=== PATIENT | male | born 1965 | race Caucasian/White ===

== ENCOUNTER 2022-03-26 11:55 | Observation (INO) ==
[2022-03-26] MEDS ORDERED: SODIUM CHLORIDE 0.9% 500 ML IV STA (12:26)
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
[2022-03-26 12:37] LABS: Basophils # (auto) 0.03 K/uL (0-0.2); Basophils % (auto) 0.5 %; Eosinophils # (auto) 0.39 K/uL (0-0.50); Eosinophils % (auto) 5.9 %; Hematocrit (blood only) 44.1 % (40.1-51.0); Immature Granulocytes # (auto) 0.02 K/uL (0.00-0.02); Immature Granulocytes % (auto) 0.3 %; Lymphocytes # (auto) 1.69 K/uL (1.2-3.4); Lymphocytes % (auto) 25.6 %; Mean Corpuscular Hemoglobin 30.7 pg (25.0-34.0); Mean Corpuscular Volume 90.4 fL (80.0-100.0); Mean Platelet Volume 10.8 fL (9.4-12.4); Monocytes # (auto) 0.59 K/uL (0.24-0.82); Monocytes % (auto) 8.9 %; Neutrophils # (auto) 3.89 K/uL (1.4-6.5); Neutrophils % (auto) 58.8 %; Platelet Count 218 K/uL (130-400); RDW Coefficient of Variation 12.4 % (11.5-14.5); RDW Standard Deviation 40.4 fL (36.4-46.3); Red Blood Count 4.88 M/uL (4.63-6.08); White Blood Count 6.61 K/ul (4.8-10.8)
--- NOTE | 2022-03-26 12:59 | XRay Report ---
XR chest 1V portable HISTORY: 56 years-old Male Chest Pain . Atypical chest pain COMPARISON: Chest radiograph 02/09/2006 TECHNIQUE: AP view of the chest FINDINGS: Cardiomediastinal and hilar silhouettes are within normal limits. No pneumothorax, pleural effusion, airspace consolidation or overt pulmonary edema. Degenerative changes of the shoulders and spine. IMPRESSION: No acute process. ACT 112: Negative or not required by law. The above report was generated using voice recognition software. It may contain grammatical, syntax o r spelling errors. Electronically signed by: Ed Barrios M.D. 03/26/2022 12:58 PM
[2022-03-26 13:04] LABS: Albumin Globulin Ratio 1.6 (0.9-2); Albumin Level 4.2 gm/dl (3.4-5.0); BUN Creatinine Ratio 13.6 (10-20); Bilirubin,Total 0.5 mg/dl (0.2-1.0); Calcium 8.9 mg/dl (8.5-10.1); Creatinine Clr Calc Pharmacy 104.9 ml/min; Est GFR (African American) 109.7 ml/min; Est GFR (Non-African American) 94.7 ml/min; Globulin 2.6 gm/dl (2.5-4.0); Magnesium 1.9 mg/dl (1.7-2.4); Total Protein 6.8 gm/dl (6.0-8.3)
[2022-03-26 13:10] LABS: Troponin I High Sensitivity 3.8 pg/ml (0-20)
--- NOTE | 2022-03-26 13:16 | CT Scan Report ---
CT head/brain wo con CLINICAL HISTORY: 56 years-old Male with dizziness. Acute dizziness TECHNIQUE: Multiple axial CT images of the head were obtained without contrast. A dose lowering tech nique was utilized adhering to the principles of ALARA. CT DOSE: 537.48 mGy.cm COMPARISON: None. FINDINGS: No acute intracranial hemorrhage, midline shift, intracranial mass, hydrocephalus, territorial ischem ia or abnormal extra-axial collection. The calvarium is intact. Partially imaged mild mucoperiosteal thickening of the maxillary sinuses. H ypoplastic frontal sinuses. IMPRESSION: No acute intracranial abnormality. ACT 112: Negative or not required by law. The above report was generated using voice recognition software. It may contain grammatical, syntax o r spelling errors. Electronically signed by: Ed Barrios M.D. 03/26/2022 1:15 PM
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
[2022-03-26 18:29] LABS: D Dimer 230 ug/L FEU (0-500)
[2022-03-27 04:18] LABS: Basophils # (auto) 0.03 K/uL (0-0.2); Basophils % (auto) 0.4 %; Eosinophils # (auto) 0.41 K/uL (0-0.50); Eosinophils % (auto) 5.1 %; Hematocrit (blood only) 41.1 % (40.1-51.0); Hemoglobin 14.2 g/dl (14.0-18.0); Immature Granulocytes # (auto) 0.03 K/uL (0.00-0.02); Immature Granulocytes % (auto) 0.4 %; Lymphocytes # (auto) 2.51 K/uL (1.2-3.4); Mean Corpuscular Hemoglobin 31.2 pg (25.0-34.0); Mean Corpuscular Hgb Conc 34.5 g/dL (32.0-36.0); Mean Corpuscular Volume 90.3 fL (80.0-100.0); Mean Platelet Volume 10.5 fL (9.4-12.4); Monocytes # (auto) 0.54 K/uL (0.24-0.82); Monocytes % (auto) 6.7 %; Neutrophils # (auto) 4.58 K/uL (1.4-6.5); Neutrophils % (auto) 56.4 %; Platelet Count 197 K/uL (130-400); RDW Coefficient of Variation 12.5 % (11.5-14.5); RDW Standard Deviation 40.8 fL (36.4-46.3); Red Blood Count 4.55 M/uL (4.63-6.08)
[2022-03-27 04:49] LABS: BUN Creatinine Ratio 15.7 (10-20); Calcium 8.5 mg/dl (8.5-10.1); Chol HDL Ratio 5.5 (0-5); Creatinine Clr Calc Pharmacy 111.3 ml/min; Est GFR (African American) 112.4 ml/min; Potassium 3.7 mmol/L (3.5-5.1)
--- NOTE | 2022-03-27 06:16 | Electrocardiogram Report ---
Test Reason : Blood Pressure : / mmHG Vent. Rate : 061 BPM Atrial Rate : 061 BPM P-R Int : 176 ms QRS Dur : 116 ms QT Int : 416 ms P-R-T Axes : 038 -25 071 degrees QTc Int : 418 ms Normal sinus rhythm Left ventricular hypertrophy with QRS widening Abnormal ECG When compared with ECG of 10-FEB-2006 14:58, No significant change was found Confirmed by Lucas Mcmillan ([id number]) on 03/27/2022 6:16:28 AM Referred By: REFERRED SELF Confirmed By:Lucas Mcmillan
--- NOTE | 2022-03-27 06:24 | Electrocardiogram Report ---
Test Reason : Blood Pressure : / mmHG Vent. Rate : 060 BPM Atrial Rate : 060 BPM P-R Int : 184 ms QRS Dur : 112 ms QT Int : 430 ms P-R-T Axes : 033 -17 078 degrees QTc Int : 430 ms Normal sinus rhythm Voltage criteria for left ventricular hypertrophy with repolarization abnormality Abnormal ECG When compared with ECG of 26-MAR-2022 12:06, No significant change was found Confirmed by Lucas Mcmillan ([id number]) on 03/27/2022 6:24:37 AM Referred By: REFERRED SELF Confirmed By:Lucas Mcmillan
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
[2022-03-27] MEDS ORDERED: TAMSULOSIN HCL 0.4 MG CAP PO SCH (09:00)
[2022-03-27] MEDS ORDERED: ATORVASTATIN 10 MG TAB PO SCH (09:00)
[2022-03-27] MEDS ORDERED: PANTOprazole 40 MG TAB PO SCH (09:00)
[2022-03-27] MEDS ORDERED: ASPIRIN 81 MG ECTAB PO SCH (09:00)
[2022-03-27] MEDS ORDERED: METOPROLOL SUCC 25MG EXT REL TAB PO SCH ×2 (09:00→10:15)
[2022-03-27] MEDS ORDERED: LOSARTAN POTASSIUM 25 MG TAB PO SCH (09:00)
--- NOTE | 2022-03-27 10:17 | Communication Note ---
Date of Service: March 27, 2022 Patient with nonischemic response to stress echocardiogram, having exercised into stage III of Hussein protocol. Symptoms of lightheadedness, chest heaviness not reproduced. Plan: Patient stable for discharge from a cardiology perspective, reduced dose of metoprolol succinate from 25 mg daily to 12.5 mg daily. Continue remaining cardiac medications. I will arrange for patient to have 7-day Zio patch cardiac cath technician placed this afternoon at [facility], pt can stop on his way home. Keep follow up with me as planned for 04/06/22.
--- NOTE | 2022-03-27 11:30 | Discharge Summary ---
Date of Service March 27, 2022 Admission HPI Per Admitting Provider 56 year old male with h/o CAD s/p stenting 2010, HTN, HLD who presented to the ED with dizziness and chest heaviness. Ongoing for the past few months, occurs 2-3 times per week. He describes typical episode as dizziness/lightheadedness lasting for about 15-20 seconds associated with left sided chest heaviness and nausea along with feeling of generalized weakness that he has to grab on to something to prevent a fall. Clears up in about 15-20 seconds. Doesn't happen when he is rested or sitting down. Happens only when he is standing up. Doesn't happen immediately when he stands up. No vertigo. No diplopia, tinnitus, hearing loss, numbness, weakness, dizziness, headache, flashes or floaters, palpitations, shortness of breath during those episodes. No fever or chills. No dyspnea, orthopnea, PND. Weight stable. Doesn't smoke or drink alcohol. Doesn't do drugs. Follows with Dr Serrano annually, next visit on . Denies any history of pulmonary issues, VTE, CVA/TIA, DM. Denies any anginal symptoms. Physically active at work. States he gets winded when climbing flights of stairs at work for past 8 months but no issues when walking on flat surface. States he has noticed some dependent edema at the end of the day. He has gained 15 lbs since the COVID started. Episode this morning was most severe lasting for about 15-20 minutes. He was walking in a sikh around 10:40 when he had dizziness, chest heaviness with nausea and sweating and he looked flushed per . Resolved on its own after 15-20 minutes. Normal oral intake. No diarrhea, vomiting. He took all his morning medications. He has not checked his blood pressure or blood sugar during any of those episodes. He currently feels fine during my encounter. at bedside. Admission Exam Per Admitting Provider General: Sitting comfortably in bed, not in distress, on room air HEENT: EOMI, ORESTES, MMM Chest: Clear breath sounds bilaterally, no wheezes or crackles CVS: Regular rate and rhythm, normal heart sounds, no murmur Abdomen: Soft, non tender, not distended, normal bowel sounds Neuro: Awake, alert, oriented, conversing well, non focal Extremities: No edema Principal Diagnosis dizziness Discharge Exam General: Sitting comfortably in bed, not in distress, on room air HEENT: EOMI, ORESTES, MMM Chest: Clear breath sounds bilaterally, no wheezes or crackles CVS: Regular rate and rhythm, normal heart sounds, no murmur Abdomen: Soft, non tender, not distended, normal bowel sounds Neuro: Awake, alert, oriented, conversing well, non focal Extremities: No edema Discharge Data Allergies Allergy/AdvReac Type Severity Reaction Status Date / Time rosuvastatin [From Crestor] AdvReac Verified 10/22/20 09:08 Consultations 03/26/22 13:47 ED Decision to Admit Stat 03/26/22 14:17 Consult Cardiology Routine Ordered Studies 03/26/22 12:26 CT head/brain wo con Stat Hospital Course (1) Dizziness: - initially concern for ACS but troponin and ECG negative x4 - given IVF, tele monitoring - Cardiology evaluation with stress test - negative - decreased dose of metoprolol given Sinus bradycardia (25mg --> 12.5mg dialy) - follow up with Cardiology with Zio patch for 1 week after discharge - symptoms resolved by time of discharge (2) Chest heaviness: - see above (3) History of coronary artery disease: - no ACS - negative stress test - follow up with [facility] as above (4) Sinus bradycardia: - see above plan Total Time Total Time Spent Total Time Spent (In Minutes): 15 Total Time Includes: Examination of the Patient, Discharge Planning, Medication Reconciliation and Communication With Other Providers Discharge Plan Discharge Items Patient Disposition: Home - Self-Care Reason For Visit: CHEST HEAVINESS, DIZZINESS Discharge Diagnosis: dizziness Activity: Resume your previous activity Non-emergency contact: Primary Care Provider and Rubber Goods Finisher Call non-emergency contact if: you have any medication questions, your symptoms worsen and your pain is not controlled Follow-up/Referrals: Gm Serrano DO [Rubber Goods Finisher] - (Date & Time 04/06/2022 4:00 PM Provider Gm Serrano DO Department Cardiology [facility] ) Rakesh Dan MD [Primary Care Provider] - (Date & Time 03/30/2022 5:00 PM Provider Rakesh Dan MD Department Family Medicine [place], [place] ) Diet: Heart Healthy Addtl Attending Provider Instructions: You were admitted for evaluation of dizziness and chest heaviness. You had blood tests and EKGs to see if your heart had injury, which were all negative. Dr. Serrano, Rubber Goods Finisher, saw you and you had a stress test that was negative for any cardiac issues. He recommended you be discharged with decreased dose of metoprolol to 12.5mg daily and to pepper picker a zio patch for 7 days after discharge today 03/27/2022. Please follow up with your Rubber Goods Finisher after discharge. Pending Studies at Discharge: No Stand-Alone Forms: My [facility], Smoking Cessation Medications and DC Order Prescriptions: Continued atorvastatin 10 mg Tablet 10 mg PO QAM tamsulosin 0.4 mg Capsule 0.4 mg PO QAM pantoprazole [Protonix] 40 mg Tablet,Delayed Release (Dr/Ec) 40 mg PO QAM aspirin 81 mg Tablet 81 mg PO QAM [id number] Tablet 1 tab PO QAM losartan 25 mg 25 mg PO QAM Changed metoprolol succinate 25 mg Tablet Extended Release 24 Hr 12.5 mg PO QAM Qty: 30 0RF Discharge Orders: Discharge Order (Routine); Ordered 03/27/22 Ordered By: Álvaro Ruth Admission Data Admit Date/Time: 03/26/22 13:51 Attending Provider: Álvaro Ruth Admit Provider: Dwayne Thomas Primary Care Provider: Rakesh Dan Other Providers: Gm Serrano ; Dwayne Thomas Other Interventions: Discharge Summary Assessment (RN) Last Done: 03/27/22 10:35
== END 2022-03-27 10:59 | disposition home or self-care (01) ==
LOC: ED 11:55 → EDINP 11:55 → SUATTDRO 13:51 → EDINP 17:48 → 2N 03-27 10:14
DX: Z88.8 Allergy status to other drugs, medicaments and biological substances; Z79.82 Long term (current) use of aspirin; E78.5 Hyperlipidemia, unspecified; R10.9 Unspecified abdominal pain; I10 Essential (primary) hypertension; Z79.899 Other long term (current) drug therapy; R00.1 Bradycardia, unspecified; R42 Dizziness and giddiness